=== PATIENT | male | born 1990 | race Hispanic/Latino ===

== ENCOUNTER 2019-12-25 13:27 | Emergency (ER) | payer OTHER ==
[~2019-12-25] VITALS: Ht 167.6 cm; Wt 118.4 kg
--- NOTE | 2019-12-25 13:44 | Emergency Department Note ---
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 His suggested that he check his blood pressure on an arm cuff that they have at home, and the readings were 183/99 and 197/117. Pt contacted his insurance company, who instructed him to seek ER evaluation. He denies any cp, sob, dizziness, light-headedness, N/V, numbness, tingling or focal weakness. Pt has no history of HTN, but states that he is currently at his heaviest weight. Pt had his blood pressure checked by his insurance company @ 3 months ago, and he recalls that the reading was 142/70. Patient's Mom has a history of HTN. 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 Onset (how long ago): hour(s) (1) Location: generalized headache Quality: ache Radiation: Reports non-radiation Severity: moderate Onset quality: sudden Duration (how long): hour(s) (1) Timing of current episode: constant Progression: resolved Chronicity: new Context: Denies recent illness, Denies trauma/injury, Denies non-compliance w/ medications Relieving factors: none Exacerbating factors: none Associated symptoms: Denies chest pain, Denies cough, Denies fever/chills, Denies nausea/vomiting, Denies shortness of breath Treatments prior to arrival: other (Extra-Strength Tylenol 500 mg x 1;) Risk factors: obesity, + FH of HTN; Past Medical/Family History Physician Review I have reviewed the patient's past medical and family history. Any updates have been documented here. Past Medical History Recent Fever: No Clinical Suspicion of Infectio: No New/Unexplained Change in Ment: No Past Medical History: None Past Surgical History: None Social History Smoking Cessation: Never Smoker Alcohol Use: None Any Illegal Drug Use: No TB Exposure/Symptoms: No Physically hurt or threatened: No Family History Family history of heart diseas: No Other family history Mom with HTN and DM; Other Last Tetanus: UTD Any Pre-Existing Lines (PICC,: No Is patient up to date on immun: Yes Review of Systems Review of Systems Constitutional: Denies chills, Denies fever EENTM: Reports no symptoms Cardiovascular: Denies chest pain, Denies palpitations Respiratory: Denies cough Gastrointestinal: Denies abdominal pain, Denies nausea, Denies vomiting Genitourinary: Denies dysuria, Denies frequency Musculoskeletal: Denies back pain, Denies neck pain Integumentary: Denies change in color, Denies rash Neurological: Reports headache; Denies numbness, Denies paresthesia, Denies tingling, Denies weakness Psychological: Reports no symptoms Endocrine: Reports no symptoms Hematological/Lymphatic: Reports no symptoms Review of other systems: All other systems negative Physical Exam Related Data Vital signs reviewed: Yes Physical Exam CONSTITUTIONAL Constitutional: Present well-developed, Present well-nourished, Present obese; Absent ill appearing HENT HENT: Present normocephalic, Present atraumatic, Present oropharynx clear/moist, Present nose normal HENT L/R: Present left ext ear normal, Present right ext ear normal EYES Eyes: Reports PERRL, Reports conjunctivae normal, Reports EOM normal NECK Neck: Present ROM normal, Present supple; Absent cervical adenopathy PULMONARY Pulmonary: Present effort normal, Present breath sounds normal CARDIOVASCULAR Cardiovascular: Present regular rhythm, Present heart sounds normal, Present capillary refill normal, Present normal rate GASTROINTESTINAL Abdominal: Present soft, Present nontender, Present bowel sounds normal GENITOURINARY Genitourinary: Present exam deferred SKIN Skin: Present warm, Present dry; Absent rash MUSCULOSKELETAL Musculoskeletal: Present ROM normal; Absent tenderness NEUROLOGICAL Neurological: Present alert, Present oriented x 3, Present no gross motor or sensory deficits PSYCHOLOGICAL Psychological: Present mood/affect normal, Present judgement normal Procedures 12 Lead ECG Interpretation ECG Interpretation : ECG: ECG 1 Dishwashing Machine Operator: Interpreted by ED physician Date: Dec 25, 2019 Time: 13:30 Prior ECG tracings: not available for review Rhythm: sinus rhythm Rate: normal BPM: 81 QRS axis: normal ST segments normal: Yes T waves normal: Yes Other findings: no other findings Clinical Impression: normal ECG Assessment & Plan Medical Decision Making MDM - Recommend: - LOW SODIUM diet to help lower your blood pressure. - LOW CARBOHYDRATE diet, to help with weight loss, which will also help tremendously in lowering your blood pressure. - Weight loss to achive a more ideal body weight, with goal Body Mass Index of less than 30. Even 20 pounds of weight loss, can make a BIG difference in lowering your blood pressure. - AVOID FAST, FATTY, FRIED and ALL processed food. Shop on the outside aisles of the grocery store (vegetables, fruits, fresh meat, eggs, etc.) - The book, "The Obesity Code," by Dr. Gareth Hutson outlines the healthiest lifestyle changes to make, in order to achieve a long, healthy life. This includes LOW carbohydrate diet, intermittent fasting, and avoiding inflammatory grains such as wheat, gluten and others. - Measure your blood pressure readings once or twice daily, and log the readings. Make sure that the cuff is an appropriate fit for your arm. A cuff that is too small, will give artificially high readings. - Establish care with a Primary Care Physician [facility], and follow-up with them, with your blood pressure readings, and to have a complete physicial, along with fasting labs to check your cholesterol and blood sugar. - Return to the ER, if your blood pressure is elevated, and you have a severe headache unrelieved by Extra Strength Tylenol 500 mg - 2 tabs and/or if the headache is associated with nausea, vomiting, dizziness, visual changes, numbness, tingling or weakness of an extremity, or chest pain or shortness of breath. Assessment & Plan Final Impression: (1) Elevated blood pressure reading without diagnosis of hypertension Depart Disposition: HOME, SELF-CARE MATILDA MENDOZA MD Dec 25, 2019 13:44
[2019-12-25 14:36] VITALS: BP 162/87
== END 2019-12-25 15:22 | disposition home or self-care (01) ==
LOC: FSED 13:45
DX: R03.0 Elevated blood-pressure reading, without diagnosis of hypertension (principal)
CPT/HCPCS: 93005; 99282